=== PATIENT | female | born 1980 | race African-American/Black ===

== ENCOUNTER 2019-10-12 06:36 | Day surgery (SDC) | payer OTHER ==
[2019-10-12] VITALS (13 sets, daily range): BP systolic 94–122; BP diastolic 55–83
[~2019-10-12] VITALS: Ht 158.8 cm; Wt 57.2 kg
[~2019-10-12 06:36] MED LIST: Clindamycin 600mg/D5W 50ml IV ONE; celeBREX 200mg Cap **SURGERY PATIENTS ONLY ORAL ONE; oxyCONTIN 20mg tab ORAL ONE
[2019-10-12] MEDS ORDERED: CLARITIN10 MG ORAL (07:15)
--- NOTE | 2019-10-12 07:26 | Operative Note - PDOC ---
Operative Note Operative Note Pre-op Diagnosis: left shoulder impingement Procedure: see op report Post-op Diagnosis: same as pre-op plus Operative Findings: consistent w/pre-op dx studies Anesthesia: regional Specimen: none Complications: none Condition: stable Estimated Blood Loss: none Implant(s) used?: No Matt Otoole MD Oct 12, 2019 07:26
--- NOTE | 2019-10-12 07:26 | Pre-Procedure Note/Attestation ---
Pre-Procedure Note/Attestation Complete Prior to Procedure Planned Procedure: left Procedure Narrative: shoulder diagnostic arthroscopy, sad Indications for Procedure Pre-Operative Diagnosis: left shoulder impingement Attestation I attest that I discussed the nature of the procedure; its benefits; risks and complications; and alternatives (and the risks and benefits of such alternatives ), prior to the procedure, with the patient (or the patient's legal sales representative public utilities). I attest that, if there was a reasonable possibility of needing a blood transfusion, the patient (or the patient's legal sales representative public utilities) was given the [facility] standardized written summary, pursuant to the [place] Blood Safety Act ([place] Health and Safety Code # 1645, as amended). I attest that I re-evaluated the patient just prior to the surgery and that there has been no change in the patient's H&P, except as documented below: Matt Otoole MD Oct 12, 2019 07:26
[2019-10-12] MEDS ORDERED: Tylenol #3 tab (300mg/30mg) ORAL PRN (07:30)
[2019-10-12] MEDS ORDERED: HYDROcodone/Acetamin 5/325 tab ORAL PRN ×2 (07:30→09:30)
[2019-10-12] MEDS ORDERED: HYDROmorphone 1mg/ml Carpuject SUBQ PRN (07:30)
[2019-10-12] MEDS ORDERED: Ketorolac 30mg Inj ONE (09:19)
[2019-10-12] MEDS ORDERED: EPINEPHrine 1mg/1ml Amp ONE (09:19)
[2019-10-12] MEDS ORDERED: Kenalog-40 1ml Vial ONE (09:19)
[2019-10-12] MEDS ORDERED: LR 1000ml 1,000 ML IVLG SCH (09:27)
[2019-10-12] MEDS ORDERED: Labetalol 5mg/ml 20ml vial IV PRN (09:30)
[2019-10-12] MEDS ORDERED: oxyCODONE HCL/Acetaminophen 5/325mg ORAL PRN (09:30)
[2019-10-12] MEDS ORDERED: Ketorolac 30mg Inj IV PRN ×2 (09:30)
[2019-10-12] MEDS ORDERED: LR 1000ml ONE (09:30)
[2019-10-12] MEDS ORDERED: Atropine Sulfate 0.4mg/ml inj IVP PRN (09:30)
[2019-10-12] MEDS ORDERED: Meperidine 25mg/0.5ml Inj (FOR RIGORS ONLY) IV PRN (09:30)
[2019-10-12] MEDS ORDERED: fentaNYL 100 mcg/2 mL IV PRN (09:30)
[2019-10-12] MEDS ORDERED: Hydromorphone 0.5mg/0.5ml inj IVP PRN (09:30)
[2019-10-12] MEDS ORDERED: LORazepam Inj 2mg/ml 1ml IV PRN (09:30)
[2019-10-12] MEDS ORDERED: HYDROcodone/Acetamin 7.5/325 tab ORAL PRN (09:30)
[2019-10-12] MEDS ORDERED: Metoclopramide 10mg/2ml Inj IVP PRN (09:30)
[2019-10-12] MEDS ORDERED: DiphenhydrAMINE 50mg/ml Inj IVP PRN (09:30)
[2019-10-12] MEDS ORDERED: Midazolam 2mg/2ml Inj IVP PRN (09:30)
[2019-10-12] MEDS ORDERED: NS Irrig 1000ml ONE (09:30)
--- NOTE | 2019-10-12 09:30 | Anethesia Preoperative Eval ---
Anesthesia Pre-op PMH/ROS General Date of Evaluation: Oct 12, 2019 Time of Evaluation: 09:36 Anesthesiologist: Ashley ASA Score: ASA 1 Mallampati Score Class I : Soft palate, uvula, fauces, pillars visible Class II: Soft palate, uvula, fauces visible Class III: Soft palate, base of uvula visible Class IV: Only hard plate visible Mallampati Classification: Class I Surgeon: Xiang Diagnosis: L Shoulder Pain Surgical Procedure: L Shoulder Arthroscopy Anesthesia History: none Family History: no anesthesia problems Allergies: Coded Allergies: PENICILLINS (Verified Allergy, Unknown, 10/10/19) Medications: see eMAR Patient NPO?: Yes Anesthesia Pre-op Phys. Exam Physician Exam Last Vital Signs Date Time Temp Pulse Resp B/P (MAP) Pulse Ox O2 Delivery O2 Flow Rate FiO2 10/12/19 07:42 97.6 66 16 104/63 100 Room Air Constitutional: NAD Neurologic: CN 2-12 intact Cardiovascular: RRR Respiratory: CTA Gastrointestinal: S/NT/ND Airway Exam Mallampati Score: Class I MO: full ROM: full Teeth: intact Anesthesia Pre-op A/P Labs Urine Test Test 10/12/19 06:50 Urine HCG, Qualitative Negative (NEGATIVE) Risk Assessment & Plan Assessment: ASA 1 Plan: GA, SED, L Supraclavicular Block Status Change Before Surgery: No Pre-Antibiotics Dru Gram Ancef IV Given Within 1 Hr of Incision: Yes Time Given: 10:00 Anderson Ramirez MD Oct 12, 2019 09:30
--- NOTE | 2019-10-12 09:32 | 48 Hour Post Anesthesia Eval ---
Post Anesthesia Evaluation Procedure: L Shoulder Arthroscopy Date of Evaluation: Oct 12, 2019 Time of Evaluation: 13:32 Blood Pressure Systolic: 99 0: 56 Pulse Rate: 81 Respiratory Rate: 18 Temperature (Fahrenheit): 97.6 O2 Sat by Pulse Oximetry: 100 Airway: patent Nausea: No Vomiting: No Pain Intensity: 1 Hydration Status: adequate Cardiopulmonary Status: Stable Mental Status/LOC: patient returned to baseline Follow-up Care/Observations: 0 Post-Anesthesia Complications: 0 Follow-up care needed: ready to discharge Anderson Ramirez MD Oct 12, 2019 09:32
--- NOTE | 2019-10-12 09:32 | Immediate Post-Op Evaluation ---
Immediate Post-Op Evalulation Immediate Post-Op Evalulation Procedure: L Shoulder Arthroscopy Date of Evaluation: Oct 12, 2019 Time of Evaluation: 11:24 IV Fluids: 1100 LR Blood Products: 0 Estimated Blood Loss: 10 Urinary Output: 0 Blood Pressure Systolic: 103 Blood Pressure Diastolic: 64 Pulse Rate: 81 Respiratory Rate: 16 O2 Sat by Pulse Oximetry: 100 Temperature (Fahrenheit): 97 Pain Score (1-10): 1 Nausea: No Vomiting: No Complications 0 Patient Status: awake, reacts, patent, none Hydration Status: adequate Dru Gram Ancef IV Given Within 1 Hr of Incision: Yes Time Given: 10:00 Anderson Ramirez MD Oct 12, 2019 09:32
[2019-10-12] MEDS ORDERED: Lidocaine 1% MPF 10mg/ml 5ml ONE (09:33)
[2019-10-12] MEDS ORDERED: Ropivacaine 5mg/ml Vial 20ml INJ ONE (09:36)
[2019-10-12] MEDS ORDERED: D5 1/2NS 1,000 ML IV SCH (15:00)
--- NOTE | 2019-10-12 21:30 | Operative Note - Dictated ---
DATE OF OPERATION: 10/12/2019 PREOPERATIVE DIAGNOSIS: Left shoulder impingement syndrome/bursitis and tendinitis. POSTOPERATIVE DIAGNOSIS: Left shoulder impingement syndrome/bursitis and tendinitis. PROCEDURES: 1. Left shoulder diagnostic arthroscopy. 2. Left shoulder subacromial decompression and bursectomy. SURGEON: Matt Otoole MD ANESTHESIA: Interscalene with general. INDICATION FOR PROCEDURE: This is a pleasant 39-year-old female with progressive left shoulder pain, who failed conservative treatment, positive diagnostic injection. She had continued pain with restricted range of motion. She was indicated for operative fixation with left shoulder diagnostic arthroscopy, subacromial decompression, bursectomy, and lysis of adhesions. Risks, limitations, expectations, and complications of the procedure were discussed in detail. All questions were addressed. DESCRIPTION OF PROCEDURE: After informed consent was obtained, the patient was brought to the operating room. The patient was placed under general anesthesia. The left shoulder was prepped and draped in sterile manner. Time-out was performed. Examination under anesthesia showed forward elevation was 140, abduction was 90, external rotation was 80, internal rotation was 65. There was moderate crepitus and impingement. Posterior skin incision was then made. Trocar was introduced into the glenohumeral joint. Systematic tour of the shoulder was performed. No significant chondral damage. Labrum appeared to be intact along with the subscap. Biceps tendon was intact. The articular side of the rotator cuff was intact. Posterior labrum was intact. At this point, the camera was placed in the subacromial space. There was hypertrophic bursal tissue. The undersurface of the acromion was identified. Acromioplasty was started from lateral to medial and completed from posterior to anterior. Once that was completed, the instruments were removed. Portal sites were closed using 3-0 Monocryl sutures. Steri-Strips and sterile dressing were applied. ESTIMATED BLOOD LOSS: None. COMPLICATIONS: None. SPECIMENS: None. IMPLANTS: None. Matt Otoole M.D. DR: Isaiah JOB#: [id number] CC:
== END 2019-10-12 14:00 | disposition home or self-care (01) ==
LOC: SUR 06:36
DX: M75.42 Impingement syndrome of left shoulder (principal); M71.9 Bursopathy, unspecified; M65.9 Synovitis and tenosynovitis, unspecified; Z88.0 Allergy status to penicillin
CPT/HCPCS: 29822; 81025; 94003; J0171; J0690; J1100; J1885; J2250; J2405; J2795; J3301; J7120; 94150